=== PATIENT | female | born 1990 | race Caucasian/White ===

== ENCOUNTER 2020-07-17 10:29 | Inpatient (IN) | payer OTHER ==
[~2020-07-17] VITALS: Ht 167.6 cm; Wt 78.5 kg
[2020-07-17] MEDS ORDERED: MISOPROSTOL 25 MCG TABLET VG PRN (22:30)
[2020-07-17] MEDS ORDERED: FENTANYL PF 100 MCG/2ML IV PRN (22:30)
[2020-07-17] MEDS ORDERED: FENTANYL PF 100 MCG/2ML IVPush PRN (22:30)
[2020-07-17] MEDS ORDERED: OXYTOCIN 30U/ 0.9% NaCL 500ML 500 ML IV PRN (22:30)
[2020-07-17] MEDS ORDERED: TERBUTALINE 1 MG/ML, 1ML SQ PRN (22:30)
[2020-07-17] MEDS ORDERED: TERBUTALINE 1 MG/ML, 1ML IVPush PRN (22:30)
[2020-07-17] MEDS ORDERED: OXYTOCIN 30U/ 0.9% NaCL 500ML 500 ML IV ONE (22:30)
[2020-07-17] MEDS ORDERED: D5%-LACTATED RINGERS 1,000 ML IV SCH (22:30)
[2020-07-17] MEDS ORDERED: ONDANSETRON 2MG/ML, 2ML IVPush PRN (22:30)
[2020-07-17] MEDS ORDERED: ALUMINUM/MAG/SIMETHICONE 30 ML UDC PO PRN (22:30)
[2020-07-17 22:50] LABS: BASOPHILS % (AUTO) 0 % (0-1); EOSINOPHILS % (AUTO) 1 % (1-7); LYMPHOCYTES % (AUTO) 24 % (22-44); MEAN CORPUSCULAR HEMOGLOBIN 30.7 pg (27.0-34.8); MEAN CORPUSCULAR HGB CONC 33.1 g/dL (32.4-35.8); MEAN PLATELET VOLUME 8.6 fL (7.4-10.4); MONOCYTES % (AUTO) 8 % (2-9); NEUTROPHILS % (AUTO) 67 % (42-75); PLATELET COUNT 244 x10^3/uL (130-400); RED BLOOD COUNT 4.08 x10^6/uL (3.82-5.3); RED CELL DISTRIBUTION WIDTH 12.8 % (9.6-15.2)
[2020-07-17 22:52] VITALS: BP 125/71
[2020-07-17 22:56] LABS: MD NO
[2020-07-17] MEDS ORDERED: PLEASE ENTER ALLERGIES MC SCH (23:00)
[2020-07-17] MEDS ORDERED: OXYTOCIN 30U/ 0.9% NaCL 500ML 500 ML ONE (23:00)
[2020-07-17] MEDS: LACTATED RINGERS 1,000 ML IV SCH (23:20)
[2020-07-18] MEDS: LACTATED RINGERS 1,000 ML IV SCH ×2 (06:15→08:58)
[2020-07-18] MEDS ORDERED: FENTANYL PF 100 MCG/2ML ONE (08:28)
[2020-07-18] MEDS ORDERED: FENTANYL/BUPIV./NS/PF 250 ML EPIDCONT ONE (09:15)
[2020-07-18] MEDS ORDERED: BUPIVACAINE 0.25% ONE (09:15)
[2020-07-18] MEDS ORDERED: LIDOCAINE/PF 1.5% EPI 1:200K, 10 ML ONE (09:15)
[2020-07-18] MEDS ORDERED: NALOXONE 0.4 MG/ML, 1ML IVPush PRN (09:30)
[2020-07-18] MEDS ORDERED: FENTANYL/BUPIV./NS/PF 250 ML EPIDCONT SCH (09:30)
[2020-07-18] MEDS ORDERED: LACTATED RINGERS 1,000 ML IVBOLUS PRN (09:30)
[2020-07-18] MEDS ORDERED: EPHEDRINE 50 MG/ML, 1ML IVPush PRN (09:30)
[2020-07-18] MEDS ORDERED: LACTATED RINGERS 1,000 ML IV SCH (09:30)
[2020-07-18] MEDS ORDERED: NEWBORN KIT ONE (14:53)
[2020-07-18] MEDS ORDERED: OXYTOCIN 30U/ 0.9% NaCL 500ML 500 ML ONE (16:43)
[2020-07-18] MEDS ORDERED: IBUPROFEN 600 MG TABLET ONE (18:05)
[2020-07-18] MEDS ORDERED: OXYcodone/APAP 5/325MG TABLET ONE (18:05)
[2020-07-18 18:10] VITALS: BP 130/79
[2020-07-18] MEDS: IBUPROFEN 600 MG TABLET PO PRN (18:10)
[2020-07-18] MEDS: OXYcodone/APAP 5/325MG TABLET PO PRN (18:10)
[2020-07-18] MEDS ORDERED: ONDANSETRON 2MG/ML, 2ML IV PRN (19:00)
[2020-07-18] MEDS ORDERED: SIMETHICONE 80 MG CHEW TAB PO PRN (19:00)
[2020-07-18] MEDS ORDERED: OXYcodone/APAP 5/325MG TABLET PO PRN (19:00)
[2020-07-18] MEDS: OXYTOCIN 30U/ 0.9% NaCL 500ML 500 ML IV SCH (19:00)
[2020-07-18] MEDS ORDERED: MISOPROSTOL 200 MCG TABLET SL PRN (19:00)
[2020-07-18 19:35] VITALS: BP 119/73
[2020-07-19 00:20] VITALS: BP 111/71
[2020-07-19] MEDS: DOCUSATE 100 MG CAPSULE PO PRN ×2 (00:27→13:21)
[2020-07-19] MEDS: IBUPROFEN 600 MG TABLET PO PRN ×3 (00:27→13:22)
[2020-07-19] MEDS: OXYcodone/APAP 5/325MG TABLET PO PRN ×2 (00:27→13:22)
[2020-07-19 00:55] LABS: BASOPHILS % (AUTO) 0 % (0-1); EOSINOPHILS % (AUTO) 0 % (1-7); LYMPHOCYTES % (AUTO) 14 % (22-44); MEAN CORPUSCULAR HEMOGLOBIN 31.3 pg (27.0-34.8); MEAN CORPUSCULAR HGB CONC 33.7 g/dL (32.4-35.8); MEAN PLATELET VOLUME 8.6 fL (7.4-10.4); MONOCYTES % (AUTO) 7 % (2-9); NEUTROPHILS % (AUTO) 79 % (42-75); PLATELET COUNT 189 x10^3/uL (130-400); RED BLOOD COUNT 3.77 x10^6/uL (3.82-5.3); RED CELL DISTRIBUTION WIDTH 12.9 % (9.6-15.2)
[2020-07-19 00:59] LABS: MD NO
[2020-07-19 04:00] VITALS: BP 104/67
[2020-07-19] MEDS: OXYTOCIN 30U/ 0.9% NaCL 500ML 500 ML IV SCH (05:00)
[2020-07-19 07:30] VITALS: BP 105/69
[2020-07-19] MEDS ORDERED: PRENATAL VIT/IRON/FA 1 EACH TABLET PO SCH (09:00)
[2020-07-19 12:00] VITALS: BP 108/64
[2020-07-19] MEDS ORDERED: IBUP-1222 PO ×2 (18:04→18:05)
== END 2020-07-19 19:15 | disposition home or self-care (01) | DRG 807 ==
LOC: LDIP 22:03 → 2NW 07-18 18:09
PROVIDERS: ADMIT Student in an Organized Health Care Education/Training Program; ATTEND Student in an Organized Health Care Education/Training Program
PROC: 10E0XZZ Delivery of Products of Conception, External Approach (ICD-10-PCS; principal; 2020-07-18)
PROC: 0KQM0ZZ Repair Perineum Muscle, Open Approach (ICD-10-PCS; 2020-07-18)
PROC: 3E0R3BZ Introduction of Anesthetic Agent into Spinal Canal, Percutaneous Approach (ICD-10-PCS; 2020-07-18)
PROC: 00HU33Z Insertion of Infusion Device into Spinal Canal, Percutaneous Approach (ICD-10-PCS; 2020-07-18)
PROC: 10H07YZ Insertion of Other Device into Products of Conception, Via Natural or Artificial Opening (ICD-10-PCS; 2020-07-18)
DX: O70.1 Second degree perineal laceration during delivery (principal); Z37.0 Single live birth; Z3A.40 40 weeks gestation of pregnancy; Z83.3 Family history of diabetes mellitus; Z87.442 Personal history of urinary calculi; Z20.828 Contact with and (suspected) exposure to other viral communicable diseases
CPT/HCPCS: 36415; 85025; 86592; 86850; 86900; 87635; G0378; J3010; J2590; J7120